=== PATIENT | male | born 1950 | race Caucasian/White ===

== ENCOUNTER 2024-06-02 13:45 | Outpatient (CLI) | payer MEDICARE, SELFPAY | END 2024-06-02 13:46 | disposition home or self-care (01) | LOC: ANHBWCAUD 13:46 | PROVIDERS: PCP Family Medicine; Visit Provider Otolaryngology | DX: H90.3 Sensorineural hearing loss, bilateral (principal); H73.92 Unspecified disorder of tympanic membrane, left ear | CPT/HCPCS: 92557; 92567 ==